=== PATIENT | female | born 1985 | race Caucasian/White ===

== ENCOUNTER 2018-07-03 14:40 | Emergency (ER) | payer OTHER ==
[2018-07-03] MEDS ORDERED: predniSONE 20 MG TAB ONE (15:30)
[2018-07-03] MEDS ORDERED: diphenhydrAMINE 25 MG CAP ONE (15:30)
[2018-07-03] MEDS ORDERED: Famotidine 20 MG TAB ONE (15:30)
== END 2018-07-03 16:28 | disposition home or self-care (01) ==
LOC: SCSER 14:40
DX: T78.40XA Allergy, unspecified, initial encounter (principal)
CPT/HCPCS: 99282; J7506

== ENCOUNTER 2023-03-26 07:46 | Outpatient (CLI) | payer BC | END 2023-03-26 07:47 | disposition home or self-care (01) | LOC: ULT 07:46 | PROVIDERS: ATTEND Nurse Practitioner Family | DX: R10.9 Unspecified abdominal pain (principal); N85.2 Hypertrophy of uterus; Z90.49 Acquired absence of other specified parts of digestive tract | CPT/HCPCS: 76700; 76856; 93976 ==